=== PATIENT | female | born 1955 | race Caucasian/White ===

== ENCOUNTER → 2020-06-19 | Outpatient (CLI) | payer BC ==
[~2020-06-19] MED LIST: ACET-1600 PO; DULO30CA2 PO; FAMO20TA7 PO; IBUP-1223 PO; PRIM50TA34 PO; VITAMIN B12
[2020-06-19 10:14] LABS: BASOPHILS % (AUTO) 1 % (0-1); EOSINOPHILS % (AUTO) 3 % (1-7); LYMPHOCYTES % (AUTO) 31 % (22-44); MEAN CORPUSCULAR HEMOGLOBIN 32.1 pg (27.0-34.8); MEAN CORPUSCULAR HGB CONC 33.6 g/dL (32.4-35.8); MEAN PLATELET VOLUME 7.1 fL (7.4-10.4); MONOCYTES % (AUTO) 7 % (2-9); NEUTROPHILS % (AUTO) 58 % (42-75); PLATELET COUNT 350 x10^3/uL (130-400); RED BLOOD COUNT 4.44 x10^6/uL (3.82-5.3)
[2020-06-19 10:19] LABS: MD NO
[2020-06-19 10:29] LABS: ANION GAP 5 mmol/L (5-15); CALCIUM 9.5 mg/dL (8.5-10.1); CHLORIDE 106 mmol/L (98-107)
[2020-06-19 10:34] LABS: ALANINE AMINOTRANSFERASE 23 U/L (12-78); ALKALINE PHOSPHATASE 96 U/L (45-117); BILIRUBIN,TOTAL 0.6 mg/dL (0.2-1.0); CREATININE 0.72 mg/dL (0.55-1.02); TOTAL PROTEIN 7.5 g/dL (6.4-8.2)
== END | disposition home or self-care (01) ==
LOC: STAR 09:00
PROVIDERS: ATTEND Orthopaedic Surgery
DX: Z01.810 Encounter for preprocedural cardiovascular examination (principal); Z01.818 Encounter for other preprocedural examination; S72.141A Displaced intertrochanteric fracture of right femur, initial encounter for closed fracture; I44.4 Left anterior fascicular block; X58.XXXA Exposure to other specified factors, initial encounter; Y93.89 Activity, other specified; Y92.89 Other specified places as the place of occurrence of the external cause; Y99.8 Other external cause status; Z20.822 Contact with and (suspected) exposure to COVID-19
CPT/HCPCS: 80053; 85025; 87081; 87635; 93005

== ENCOUNTER 2020-06-23 10:19 | Observation (INO) | payer BC ==
[~2020-06-23] VITALS: Ht 167.6 cm; Wt 78.0 kg
[~2020-06-23 10:19] MED LIST changes: +DEXAMETHASONE 4 MG/ML, 1ML IVPush ONE; +EPINEPHRINE 1 MG/ML, 1ML ONE; +KETOROLAC 60 MG/2 ML ONE; +ROPIvacaine/PF 0.2%, 20 ML ONE; +SODIUM CHLORIDE 0.9% 50 ML ONE; +TRANEXAMIC ACID 100 MG/ML, 10ML ONE; +VANCOMYCIN 1,000 MG ONE
[2020-06-23] MEDS ORDERED: CHLORHEXIDINE 15 ML UDC MM ONE (10:41)
[2020-06-23] MEDS ORDERED: LACTATED RINGERS 1,000 ML IV SCH (11:00)
[2020-06-23] MEDS ORDERED: MIDAZOLAM 1 MG/ML, 2ML ONE (11:26)
[2020-06-23] MEDS ORDERED: FENTANYL PF 250 MCG/5ML ONE (11:26)
[2020-06-23] MEDS ORDERED: PROPOFOL 10 MG/ML, 20ML ONE (12:35)
[2020-06-23] MEDS ORDERED: CEFAZOLIN 1,000 MG ONE (12:35)
[2020-06-23] MEDS ORDERED: SUCCINYLCHOLINE 20 MG/ML, 10ML ONE (12:35)
[2020-06-23] MEDS ORDERED: ONDANSETRON 2MG/ML, 2ML ONE (12:35)
[2020-06-23] MEDS ORDERED: DEXAMETHASONE 4 MG/ML, 5ML ONE (12:35)
[2020-06-23] MEDS ORDERED: ROCURONIUM 10MG/ML,5ML ONE (12:35)
[2020-06-23] MEDS ORDERED: FENTANYL PF 100 MCG/2ML ONE (14:36)
[2020-06-23] MEDS ORDERED: OXYcodone 5 MG/5 ML ORAL.SOL UDC ONE (14:36)
[2020-06-23] MEDS: FENTANYL PF 100 MCG/2ML IV PRN ×2 (14:38→14:50)
[2020-06-23] MEDS ORDERED: DIAZEPAM 5 MG/ML, 2ML ONE (14:42)
[2020-06-23] MEDS ORDERED: HYDROmorphone 1 MG/ML, 1ML INJ ONE (14:42)
[2020-06-23] MEDS ORDERED: PROMETHAZINE 25 MG/ML, 1ML IM PRN (15:00)
[2020-06-23] MEDS ORDERED: OXYcodone IR 5MG TABLET PO PRN (15:00)
[2020-06-23] MEDS ORDERED: DIPHENHYDRAMINE 50 MG CAPSULE PO PRN (15:00)
[2020-06-23] MEDS ORDERED: ALUMINUM/MAG/SIMETHICONE 30 ML UDC PO PRN (15:00)
[2020-06-23] MEDS ORDERED: MAGNESIUM HYDROXIDE 8%, 30ML UDC PO PRN (15:00)
[2020-06-23] MEDS ORDERED: ONDANSETRON 2MG/ML, 2ML IVPush PRN (15:00)
[2020-06-23] MEDS ORDERED: DIAZEPAM 5 MG TABLET PO PRN (15:00)
[2020-06-23] MEDS ORDERED: POLYETHYLENE GLYCOL 17 GM PACKET PO PRN (15:00)
[2020-06-23] MEDS ORDERED: MEPERIDINE/PF 25MG/0.5ML IVPush PRN (15:00)
[2020-06-23] MEDS ORDERED: OXYcodone 5 MG/5 ML ORAL.SOL UDC PO PRN (15:00)
[2020-06-23] MEDS ORDERED: LABETALOL 5MG/ML, 20ML IV PRN (15:00)
[2020-06-23] MEDS ORDERED: PROMETHAZINE 12.5 MG SUPP PR PRN (15:00)
[2020-06-23] MEDS ORDERED: HYDROmorphone 1 MG/ML, 1ML INJ IVPush PRN (15:00)
[2020-06-23] MEDS ORDERED: PROMETHAZINE 25 MG/ML, 1ML IV PRN (15:00)
[2020-06-23] MEDS ORDERED: ALBUTEROL SULFATE 2.5 MG/3 ML NPPB PRN (15:00)
[2020-06-23] MEDS ORDERED: hydrALAzine 20 MG/ML, 1ML IV PRN (15:00)
[2020-06-23] MEDS ORDERED: BISACODYL 10 MG SUPP PR PRN (15:00)
[2020-06-23] MEDS ORDERED: PSYLLIUM PACKET PO PRN (15:00)
[2020-06-23] MEDS ORDERED: ONDANSETRON 4 MG TABLET PO PRN (15:00)
[2020-06-23] MEDS ORDERED: KETOROLAC 30 MG/1 ML IV PRN (15:00)
[2020-06-23] MEDS ORDERED: DIPHENHYDRAMINE 50 MG/ML, 1ML IVPush PRN (15:00)
[2020-06-23] MEDS ORDERED: KETOROLAC 30 MG/1 ML IV SCH (15:00)
[2020-06-23] MEDS ORDERED: SENNA/DOCUSATE TABLET PO PRN (15:00)
[2020-06-23] MEDS ORDERED: TRANEXAMIC ACID 1,000 MG in SODIUM CHLORIDE 0.9% 100 ML IVPB ONE (15:00)
[2020-06-23] MEDS ORDERED: ACETAMINOPHEN 325 MG TABLET PO PRN (15:00)
[2020-06-23] MEDS: DIAZEPAM 5 MG/ML, 2ML IVPush PRN ×2 (15:05→15:43)
[2020-06-23] MEDS: HYDROmorphone 2 MG/ML, 1ML IVPush PRN ×2 (15:21→15:44)
[2020-06-23] MEDS: ACETAMINOPHEN 500 MG TABLET PO SCH (17:13)
[2020-06-23] MEDS: KETOROLAC 30 MG/1 ML IV SCH (17:13)
[2020-06-23] MEDS: SODIUM CHLORIDE 0.9% 1,000 ML IV SCH (17:15)
[2020-06-23 18:50] VITALS: BP 110/72
[2020-06-23] MEDS: OXYcodone IR 5MG TABLET PO PRN (20:02)
[2020-06-23] MEDS: PRIMIDONE 50 MG TABLET PO SCH (20:03)
[2020-06-23] MEDS: DOCUSATE 100 MG CAPSULE PO SCH (20:03)
[2020-06-23] MEDS: ASPIRIN 81 MG TABLET EC PO SCH (20:03)
[2020-06-23] MEDS ORDERED: FAMOTIDINE 40 MG TABLET PO SCH (21:00)
[2020-06-23] MEDS ORDERED: DULOXETINE 30 MG CAPSULE.DR PO SCH (21:00)
[2020-06-23] MEDS: CEFAZOLIN PMX 1GM/50ML 50 ML IVPB SCH (21:02)
[2020-06-24 01:05] VITALS: BP 96/62
[2020-06-24] MEDS: ACETAMINOPHEN 500 MG TABLET PO SCH ×2 (02:31→09:15)
[2020-06-24] MEDS: OXYcodone IR 5MG TABLET PO PRN ×2 (02:31→07:58)
[2020-06-24] MEDS: KETOROLAC 30 MG/1 ML IV SCH ×2 (02:31→10:30)
[2020-06-24] MEDS: SODIUM CHLORIDE 0.9% 1,000 ML IV SCH (04:20)
[2020-06-24] MEDS: CEFAZOLIN PMX 1GM/50ML 50 ML IVPB SCH (05:38)
[2020-06-24] MEDS ORDERED: DEXAMETHASONE 4 MG/ML, 1ML IVPush ONE (06:00)
[2020-06-24 07:15] VITALS: BP 123/72
[2020-06-24] MEDS: PRIMIDONE 50 MG TABLET PO SCH (07:48)
[2020-06-24] MEDS: ASPIRIN 81 MG TABLET EC PO SCH (07:48)
[2020-06-24] MEDS: DOCUSATE 100 MG CAPSULE PO SCH (07:48)
[2020-06-24] MEDS ORDERED: TAMSULOSIN 0.4 MG CAP.ER.24H PO ONE (08:00)
[2020-06-24] MEDS ORDERED: DULOXETINE 30 MG CAPSULE.DR PO SCH (09:00)
[2020-06-24 10:39] VITALS: BP 95/60
[2020-06-24 11:07] VITALS: BP 110/63
== END 2020-06-24 11:21 | disposition home or self-care (01) ==
LOC: OUT 10:19 → 4NE 14:32 → OUT 14:32 → 4NE 16:15 → DCLOUNGE 06-24 11:15
PROVIDERS: ADMIT Orthopaedic Surgery; ATTEND Orthopaedic Surgery
DX: S72.001K Fracture of unspecified part of neck of right femur, subsequent encounter for closed fracture with nonunion (principal); K21.9 Gastro-esophageal reflux disease without esophagitis; Z79.899 Other long term (current) drug therapy; Z85.3 Personal history of malignant neoplasm of breast; X58.XXXD Exposure to other specified factors, subsequent encounter
CPT/HCPCS: 20680; 27130; 36415; 72170; 85014; 85018; 86850; 86900; 96361; 96365; 96366; 96375; 96376; 97110; 97161; 97165; C1713; C1776; G0378; J0171; J0330; J0690; J1100; J1170; J1885; J2250; J2405; J2704; J2795; J3010; J3360; J3370; J7030